=== PATIENT | male | born 1960 | race American Indian/Alaskan Native ===

== ENCOUNTER 2020-09-30 10:14 | Inpatient (IN) | payer BC, OTHER ==
[2020-09-30 10:24] VITALS: BMI 21.4
[2020-09-30] MEDS ORDERED: VANCOMYCIN 1 GM in D5W (PRE-DOCKED) 1,000 MG/250 ML IVPB ONE (10:58)
[2020-09-30] MEDS ORDERED: AMPICILLIN NA/SULBACTAM NA 1.5 GM in SODIUM CHLORIDE 100 ML IVPB ONE (10:58)
[2020-09-30] MEDS ORDERED: DIPHTH,PERTUSS(ACELL),TET 0.5 ML DISP.SYRIN IM ONE ×2 (11:00→11:31)
[2020-09-30 11:29] LABS: BASO % 0.5 % (0-2.0); HEMATOCRIT 41.7 % (35.4-49); HEMOGLOBIN 14.3 GM/dL (11.7-16.9); LYMPH % 9.6 % (8-40); MCH 30.7 pg (25.7-33.7); MCHC 34.4 g/dl (32.0-35.9); MEAN CELL VOLUME 89.1 fl (80-96); MEAN PLT VOLUME 9.8 fl (7.5-11.1); MONO % 7.2 % (3.8-10.2); NEUT % 81.7 % (42.8-82.8); PLATELET COUNT 184 10^3/uL (134-434); RBC 4.68 M/mm3 (4.00-5.60); WHITE BLOOD COUNT 12.8 K/mm3 (4.0-10.0)
[2020-09-30] MEDS ORDERED: VANCOMYCIN 1 GRAM (PRE-DOCKED) 1,000 MG/250 ML BAG IVPB ONE ×2 (11:30→22:10)
[2020-09-30 11:49] LABS: CALCIUM 9.5 mg/dL (8.5-10.1)
[2020-09-30 11:50] LABS: ALBUMIN 4.4 g/dl (3.4-5.0); BLOOD UREA NITROGEN 15.6 mg/dL (7-18)
[2020-09-30 11:54] LABS: BILIRUBIN,TOTAL 0.9 mg/dL (0.2-1)
[2020-09-30 12:16] LABS: ERYTHROCYTE SEDIMENTATION RATE 19 mm/hr (0-20)
[2020-09-30] MEDS ORDERED: ACETAMINOPHEN 325 MG TABLET (FP) PO PRN (16:28)
[2020-09-30] MEDS ORDERED: VANCOMYCIN 1 GRAM (PRE-DOCKED) 1,000 MG/250 ML BAG IVPB SCH (17:00)
[2020-09-30] MEDS ORDERED: ACETAMINOPHEN 325 MG TABLET (FP) ONE (19:58)
[2020-09-30] MEDS: SODIUM CHLORIDE 1,000 ML IV SCH (20:06)
[2020-09-30] MEDS: AMPICILLIN NA/SULBACTAM NA 1.5 GM in SODIUM CHLORIDE 100 ML IVPB SCH (20:54)
[2020-09-30] MEDS: VANCOMYCIN 1 GRAM (PRE-DOCKED) 1,000 MG/250 ML BAG IVPB SCH (22:30)
[2020-09-30] MEDS: INSULIN SLIDING SCALE (NOVOLOG) 1 VIAL SQ SCH (22:30)
[2020-10-01] MEDS: AMPICILLIN NA/SULBACTAM NA 1.5 GM in SODIUM CHLORIDE 100 ML IVPB SCH ×4 (04:27→21:33)
[2020-10-01 06:34] LABS: HEMATOCRIT 36.5 % (35.4-49); HEMOGLOBIN 12.5 GM/dL (11.7-16.9); MCHC 34.4 g/dl (32.0-35.9); MEAN CELL VOLUME 90.1 fl (80-96); MEAN PLT VOLUME 10.3 fl (7.5-11.1); PLATELET COUNT 156 10^3/uL (134-434); RBC 4.05 M/mm3 (4.00-5.60); RDW 13.3 % (11.9-15.9); WHITE BLOOD COUNT 9.8 K/mm3 (4.0-10.0)
[2020-10-01 07:11] LABS: CALCIUM 8.6 mg/dL (8.5-10.1)
[2020-10-01 07:12] LABS: BLOOD UREA NITROGEN 13.4 mg/dL (7-18)
[2020-10-01 07:15] LABS: CREATININE 0.9 mg/dL (0.55-1.3)
[2020-10-01] MEDS: INSULIN SLIDING SCALE (NOVOLOG) 1 VIAL SQ SCH ×4 (08:15→21:24)
[2020-10-01] MEDS ORDERED: VANCOMYCIN 1 GRAM (PRE-DOCKED) 1,000 MG/250 ML BAG IVPB ONE (09:16)
[2020-10-01] MEDS ORDERED: ENOXAPARIN NA (PORCINE) 40 MG/0.4 ML DISP.SYRIN SQ ONE (09:16)
[2020-10-01] MEDS ORDERED: PT OWN MED DRAWER 7, Y5N ONE ×3 (09:20→15:38)
[2020-10-01] MEDS: VANCOMYCIN 1 GRAM (PRE-DOCKED) 1,000 MG/250 ML BAG IVPB SCH (09:53)
[2020-10-01] MEDS: ENOXAPARIN NA (PORCINE) 40 MG/0.4 ML DISP.SYRIN SQ SCH (09:53)
[2020-10-01] MEDS ORDERED: ONDANSETRON 4 MG/2 ML VIAL IVPUSH PRN (16:35)
[2020-10-01] MEDS: SODIUM CHLORIDE 1,000 ML IV SCH (21:22)
[2020-10-01] MEDS ORDERED: ATORVASTATIN CA 20 MG TABLET (FP) PO SCH (22:00)
[2020-10-02] MEDS: AMPICILLIN NA/SULBACTAM NA 1.5 GM in SODIUM CHLORIDE 100 ML IVPB SCH ×3 (02:33→14:25)
[2020-10-02] MEDS ORDERED: PT OWN MED DRAWER 7, Y5N ONE ×3 (05:24→10:45)
[2020-10-02] MEDS: INSULIN SLIDING SCALE (NOVOLOG) 1 VIAL SQ SCH ×2 (06:03→11:04)
[2020-10-02] MEDS ORDERED: LEVOTHYROXINE NA 25 MCG TABLET (FP) PO SCH (07:00)
[2020-10-02] MEDS ORDERED: amLODIPine BESYLATE 5 MG TABLET (FP) PO SCH (10:00)
[2020-10-02] MEDS ORDERED: AMPICILLIN NA/SULBACTAM NA 3 GM VIAL ONE ×2 (10:29→14:05)
[2020-10-02] MEDS ORDERED: SODIUM CHLORIDE 100 ML IVPB ONE ×2 (10:29→14:05)
[2020-10-02] MEDS: ENOXAPARIN NA (PORCINE) 40 MG/0.4 ML DISP.SYRIN SQ SCH (10:33)
[2020-10-02 14:46] VITALS: BP 133/93; PULSE 78; TEMP 98
== END 2020-10-02 16:32 | disposition home or self-care (01) | DRG 603 ==
LOC: JER 10:14 → JERBED 11:03 → J8W 10-01 19:50
PROVIDERS: ADMIT Internal Medicine; ATTEND Internal Medicine
DX: L03.113 Cellulitis of right upper limb (principal); I10 Essential (primary) hypertension; E11.9 Type 2 diabetes mellitus without complications; E78.5 Hyperlipidemia, unspecified; E03.9 Hypothyroidism, unspecified; S61.451A Open bite of right hand, initial encounter; W55.01XA Bitten by cat, initial encounter; Y93.89 Activity, other specified; Y92.89 Other specified places as the place of occurrence of the external cause; Y99.8 Other external cause status; Z79.84 Long term (current) use of oral hypoglycemic drugs
CPT/HCPCS: 36415; 73130-TC-RT-FY; 80048; 80053; 82962; 85025; 85027; 85651; 86140; 87040; 90715; 93005; 93010; 99285-25; C9803; U0003; U0005